=== PATIENT | male | born 1950 | race Caucasian/White ===

== ENCOUNTER 2023-06-21 14:59 | Outpatient (RCR) | payer MEDICARE, BC, SELFPAY | END 2023-06-21 23:59 | disposition home or self-care (01) | LOC: RST 14:59 | PROVIDERS: ATTENDING PHYSICIAN Psychiatry & Neurology Neurology; FAMILY PHYSICIAN Family Medicine | DX: G20.A1 Parkinson's disease without dyskinesia, without mention of fluctuations (principal); R49.8 Other voice and resonance disorders; R47.1 Dysarthria and anarthria | CPT/HCPCS: 92507 ==

== ENCOUNTER 2023-06-29 16:03 | Outpatient (RCR) | payer MEDICARE, BC, SELFPAY | END 2023-06-29 23:59 | disposition home or self-care (01) | LOC: RPT 16:03 | PROVIDERS: ATTENDING PHYSICIAN Specialist; FAMILY PHYSICIAN Family Medicine | DX: R35.0 Frequency of micturition (principal); N39.41 Urge incontinence; R35.1 Nocturia; M62.89 Other specified disorders of muscle | CPT/HCPCS: 97162; 97530 ==

== ENCOUNTER 2023-08-09 13:27 | Outpatient (RCR) | payer MEDICARE, BC, SELFPAY | END 2023-08-09 13:47 | disposition home or self-care (01) | LOC: RST 13:27 | PROVIDERS: FAMILY PHYSICIAN Family Medicine | DX: G20.A1 Parkinson's disease without dyskinesia, without mention of fluctuations (principal); R49.8 Other voice and resonance disorders; R47.1 Dysarthria and anarthria | CPT/HCPCS: 92507 ==

== ENCOUNTER 2023-08-16 15:58 | Outpatient (RCR) | payer MEDICARE, BC, SELFPAY | END 2023-08-16 23:59 | disposition home or self-care (01) | LOC: RPT 15:58 | PROVIDERS: ATTENDING PHYSICIAN Specialist; FAMILY PHYSICIAN Family Medicine | DX: G20.A1 Parkinson's disease without dyskinesia, without mention of fluctuations (principal); R49.8 Other voice and resonance disorders; R47.1 Dysarthria and anarthria | CPT/HCPCS: 92507; 97110; 97112; 97530 ==

== ENCOUNTER 2023-08-18 09:30 | Outpatient (RCR) | payer SELFPAY | END 2023-08-18 23:59 | disposition home or self-care (01) | LOC: RST 09:30 | PROVIDERS: ATTENDING PHYSICIAN Family Medicine | DX: G20.A1 Parkinson's disease without dyskinesia, without mention of fluctuations (principal) ==

== ENCOUNTER 2023-09-13 14:01 | Outpatient (RCR) | payer MEDICARE, BC, SELFPAY | END 2023-09-13 23:59 | disposition home or self-care (01) | LOC: RST 14:01 | PROVIDERS: ATTENDING PHYSICIAN Family Medicine | DX: R35.0 Frequency of micturition (principal); N39.41 Urge incontinence; R35.1 Nocturia; M62.89 Other specified disorders of muscle; Z73.6 Limitation of activities due to disability | CPT/HCPCS: 97014; 97110; 97112; 97140; 97530 ==

== ENCOUNTER 2023-10-14 14:11 | Outpatient (RCR) | payer MEDICARE, BC, SELFPAY | END 2023-10-14 23:59 | disposition home or self-care (01) | LOC: RPT 14:11 | PROVIDERS: ATTENDING PHYSICIAN Specialist; FAMILY PHYSICIAN Family Medicine | DX: R35.0 Frequency of micturition (principal); N39.41 Urge incontinence; R35.1 Nocturia; M62.89 Other specified disorders of muscle; Z73.6 Limitation of activities due to disability | CPT/HCPCS: 97014; 97112; 97530 ==

== ENCOUNTER 2023-10-28 14:25 | Outpatient (RCR) | payer MEDICARE, BC, SELFPAY | END 2023-10-28 23:59 | disposition home or self-care (01) | LOC: RPT 14:25 | PROVIDERS: ATTENDING PHYSICIAN Specialist; FAMILY PHYSICIAN Family Medicine | DX: R35.0 Frequency of micturition (principal); N39.41 Urge incontinence; R35.1 Nocturia; M62.89 Other specified disorders of muscle; Z73.6 Limitation of activities due to disability | CPT/HCPCS: 97112; 97140 ==

== ENCOUNTER 2023-11-26 08:47 | Outpatient (RCR) | payer MEDICARE, BC, SELFPAY | END 2023-11-26 10:02 | disposition home or self-care (01) | LOC: RPT 08:47 | PROVIDERS: ATTENDING PHYSICIAN Specialist; FAMILY PHYSICIAN Family Medicine | DX: R35.0 Frequency of micturition (principal); N39.41 Urge incontinence; R35.1 Nocturia; M62.89 Other specified disorders of muscle; Z73.6 Limitation of activities due to disability | CPT/HCPCS: 97110; 97530 ==

== ENCOUNTER 2023-12-22 12:29 | Outpatient (RCR) | payer SELFPAY | END 2023-12-22 23:59 | disposition home or self-care (01) | LOC: RST 12:29 | PROVIDERS: ATTENDING PHYSICIAN Otolaryngology | DX: G20.A1 Parkinson's disease without dyskinesia, without mention of fluctuations (principal); R47.1 Dysarthria and anarthria; R49.8 Other voice and resonance disorders ==

== ENCOUNTER 2024-03-26 15:23 | Emergency (ER) | payer BC, MEDICARE, SELFPAY ==
[2024-03-26 15:26] VITALS: BP 110/60
[2024-03-26 16:31] VITALS: BP 149/76; BMI 20.7
--- NOTE | 2024-03-26 16:49 | ED.GENMED ---
History of Present Illness
General
Chief Complaint: Head Injury
Time Seen by Provider: 03/26/24 16:00
History of Present Illness
History of Present Illness:
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 Patient states that he was walking when he tripped on sidewalk and fell on his left side. Patient states that he struck his left forehead, left
elbow, and bilateral knees. Patient denies loss of consciousness. Tetanus up-to-date. Patient states he is having pain and swelling to his left elbow, did not know if he should take Factor VIII replacement so he discussed with his doctor
recommended come to the emergency department for further evaluation. Patient denies any headache, numbness, weakness or tingling. Patient is not on blood thinners.
Phy Exam
Physical Exam
Physical Exam:
General: Alert, no acute distress
Head: NCAT
Eyes: clear conjunctiva, PERRLA
Neck: supple. No midline tenderness to palpation
Cardiac: regular rate and rhythm, no murmur
Lungs: clear to auscultation bilaterally. No wheezes, rales, or rhonchi. Speaking full unlabored sentences. No respiratory distress.
Abdomen: soft, nondistended nontender. No rebound or guarding.
MSK: no lower extremity edema bilaterally. No deformity. No swelling, ecchymosis, or effusion to left shoulder, left elbow, or bilateral knees. No tenderness to palpation to left shoulder, left knee, or bilateral knees. FROM left shoulder, left
elbow, and bilateral knees. No midline cervical/thoracic/lumbar tenderness to palpation
Skin: warm, dry. Superficial abrasion to left forehead, left elbow, bilateral knees. No active bleeding
Neuro: Alert and oriented x3. no focal deficits
Course
Orders/Labs/Results
Orders:
Orders
03/26/24 16:47
CT Cervical Spine W/o Iv Contr Urgent
Comment:
Reason For Exam: fall
CT Head W/o Iv Contrast Urgent
Comment:
Reason For Exam: fall head trauma, hx hemophilia
Vital Signs
Initial and Last Documented VS:
Initial Vital Signs
Temp Pulse Resp BP Pulse Ox
97.4 F 65 16 110/60 99
03/26/24 15:26 03/26/24 15:26 03/26/24 15:26 03/26/24 15:26 03/26/24 15:26
Last Documented Vital Signs
Temp Pulse Resp BP Pulse Ox
97.4 F 67 30 149/76 100
03/26/24 15:26 03/26/24 16:31 03/26/24 16:31 03/26/24 16:31 03/26/24 16:31
MDM/Problems Addressed
Differential Diagnosis Includes:
Intracranial hemorrhage. Low suspicion for hemarthrosis given no swelling on exam, nontender, FROM.
MDM/Problems Addressed:
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 Patient is superficial abrasions but no significant ecchymosis or hemarthrosis. Given history of hemophilia, will obtain CT head rule out intracranial
hemorrhage.
Results reviewed. CT head/cervical spine shows 1. No acute intracranial abnormality noted. 2. No acute fracture or subluxation of the cervical spine. Multilevel degenerative changes of the cervical spine. as read by radiology. Discussed results with
patient at bedside. Offered xray left elbow/shoulder/knees, patient declines. Low suspicion for fracture given nontender and pt has full range of motion. Stable for discharge with PCP follow up.
*Critical Care Note
Total Time (30-74mins, 75-104mins- exclusive of procedures): Not Applicable
ED Attending Note
-
Portions of this chart may have been created with voice recognition software.� Occasional wrong word or��sound alike� substitutions may have occurred due to the inherent limitations of voice recognition software.
Discharge Plan
Departure
Patient Disposition: Home (Routine Discharge)
Date of Disposition: 03/26/24
Time of Disposition: 18:49
Patient with high blood pressure during this ER visit?: Yes
Discharge Problem:
Head injury due to trauma
Instructions: Wound Care (DC), Head Injury in Adults (DC), BLOOD PRESSURE
Referrals:
Shoaib Juarez DO [Family Provider] -
Activity Restrictions/Additional Instructions:
Follow up with primary care doctor in 1-2 days
Return to the emergency department for joint swelling/decreased range of motion or new/worsening symptoms
Interventions
Interventions:
*Risk Screen - Suicide Last Done: 03/26/24 16:31
*General Assessment Last Done: 03/26/24 16:31
*Neglect/Abuse Screening Last Done: 03/26/24 16:31
*ED COVID-19 Vaccine History Last Done: 03/26/24 16:31
ED- Neurological Assessment Last Done: 03/26/24 16:31
ED-Skin Assessment Last Done: 03/26/24 16:31
Discharge Date and Time
Print Language: MONGOLIAN
[2024-03-26 19:01] VITALS: BP 160/84
== END 2024-03-26 19:04 | disposition home or self-care (01) ==
LOC: EMR 15:23
PROVIDERS: EMERGENCY PHYSICIAN Emergency Medicine; FAMILY PHYSICIAN Family Medicine
DX: S09.90XA Unspecified injury of head, initial encounter (principal); S00.81XA Abrasion of other part of head, initial encounter; S50.312A Abrasion of left elbow, initial encounter; S80.212A Abrasion, left knee, initial encounter; S80.211A Abrasion, right knee, initial encounter; W01.0XXA Fall on same level from slipping, tripping and stumbling without subsequent striking against object, initial encounter; R03.0 Elevated blood-pressure reading, without diagnosis of hypertension; D66 Hereditary factor VIII deficiency
CPT/HCPCS: 99284; 70450; 72125

== ENCOUNTER 2024-05-14 21:08 | Emergency (ER) | payer BC, MEDICARE, SELFPAY ==
[2024-05-14 21:16] VITALS: BP 146/76; BMI 25.0
[2024-05-14 21:18] VITALS: BP 146/76
[2024-05-14 22:00] VITALS: BP 130/77
[2024-05-14 22:34] LABS: % Basophils 0.9 % (0-2); % Immature Granulocytes 0.2 % (0-0.5); % Lymphocytes 17.9 % (20.5-51.1); % Monocytes 11.2 % (1.7-9.3); % Neutrophils 67.8 % (42.2-75.2); Absolute Basophils 0.1 10^3/uL (0-0.2); Absolute Eosinophils 0.1 10^3/uL (0-0.7); Absolute Lymphocytes 1.2 10^3/uL (1.2-3.4); Absolute Monocytes 0.7 10^3/uL (0.1-0.6); Absolute Neutrophils 4.4 10^3/uL (1.4-6.5); Hematocrit 37.5 % (39.0-52.0); Mean Corp Hgb Conc. 34.7 g/dL (33.0-37.0); Mean Corpuscular Hgb 32.2 pg (27.0-31.0); Mean Corpuscular Volume 92.8 fL (80.0-94.0); Mean Platelet Volume 10.3 fL (7.4-10.4); Nucleated Red Blood Cells % 0 % (-); Platelet Count 207 10^3/uL (130-400); Red Blood Cell Count 4.04 10^6/uL (4.70-6.10); Red Cell Dist. Width 11.9 % (11.5-14.5); White Blood Cell Count 6.5 10^3/uL (4.8-10.8)
--- NOTE | 2024-05-14 22:44 | ED.GENMED ---
History of Present Illness
General
Chief Complaint: Hallucinations
Source: patient
Time Seen by Provider: 05/14/24 22:18
History of Present Illness
History of Present Illness:
73-year-old male with past medical history of Parkinson's, anxiety/depression presenting to the emergency department for evaluation after he reportedly experienced some hallucinations earlier this evening stating that he felt that he was seeing his
girlfriend who is in his apartment but states he knew she was not there. Patient states that he had a similar instance about a month and a half ago when he was in [place] on vacation when he was seeing objects that he felt he knew was not present.
Patient was on the phone with his girlfriend and sister and was recommended to come to the ER for further evaluation. He reports no other symptoms and states he is otherwise feeling fine. He believes this may be a side effect of his carbidopa
levodopa but states there has not been any changes to his medications recently.
Past History
Past History
ED Past Medical History: Psychiatric and Other (Parkinson's)
ED Past Surgical History: Tonsilectomy
Social History
Tobacco: Non-smoker
Alcohol: None
Drug: None
Personal: Partner
Living: alone
Review of Systems
Review of Systems
All Other Systems: ROS reviewed and negative except as documented in HPI and ROS
Phy Exam
Physical Exam
Physical Exam:
GENERAL: Alert , in no apparent distress
EYE: conjunctiva clear
NECK: Supple
ENT: o/p clr, mmm.
CARDIAC: Regular rate and rhythm
LUNGS: Clear breath sounds bilaterally, no acute respiratory distress, no wheezes/rales/rhonchi
NEUROLOGICAL: Alert and oriented
SKIN: Warm and dry, skin intact.
MUSCULOSKELETAL: well perfused.
PSYCH: Normal and appropriate interaction.
Scores
Heart Failure Risk
Heart Failure Risk Score: Not Applicable
Heart Score for Chest Pain Patients
STEMI patient?: Not applicable
Withdrawal Assessment of Alcohol
Withdrawal Assessment Completed?: Not applicable
Course
Orders/Labs/Results
Orders:
Orders
05/14/24 21:34
Complete Blood Count/With Diff Urgent
Comprehensive Metabolic Panel Urgent
05/14/24 22:25
CT Head W/o Iv Contrast Urgent
Comment:
Reason For Exam: hallucinations
05/14/24 23:10
Urinalysis Reflex To Culture Urgent
Date Specimen was Collected: 05/14/24
Time Specimen was Collected: 23:07
Urine Microscopic Reflex Cult Urgent
Abnormal Lab Results
05/14/24 05/14/24
21:34 23:10
RBC 4.04 L 10^6/uL
(4.70-6.10)
Hct 37.5 L %
(39.0-52.0)
MCH 32.2 H pg
(27.0-31.0)
Absolute Monos (auto) 0.7 H 10^3/uL
(0.1-0.6)
Lymphocytes % 17.9 L %
(20.5-51.1)
Monocytes % 11.2 H %
(1.7-9.3)
BUN 29 H mg/dl
(9-20)
Urine Ketones Trace A
(Negative)
Leukocyte Esterase Rfl Trace A
(Negative)
Urine Bacteria (Reflex) Few A
(Negative)
05/14/24 21:34
05/14/24 21:34
Vital Signs
Initial and Last Documented VS:
Initial Vital Signs
Pulse Resp Pulse Ox
70 16 99
05/14/24 21:14 05/14/24 21:14 05/14/24 21:14
Last Documented Vital Signs
Temp Pulse Resp BP Pulse Ox
98.2 F 83 25 155/81 99
05/14/24 21:16 05/14/24 23:03 05/14/24 23:03 05/14/24 23:54 05/14/24 23:03
MDM/Problems Addressed
Differential Diagnosis Includes:
medication side effect, UTI, ICH/mass, progression of parkinsons
MDM/Problems Addressed:
73-year-old male presenting to the emergency department for evaluation of reported hallucinations earlier today, asymptomatic presently. Hemodynamically stable in no acute distress. Will check labs, urine and CT of the head. I suspect this may be
a component of patient's Parkinson's. If remains stable feel it would be reasonable to send patient home. Disposition pending
Chronic conditions affecting care: Neurological disorder
*Radiology
Radiology exam reviewed: radiology read reviewed
*Pulse Oximetry
Patient hypoxic: no
*Critical Care Note
Total Time (30-74mins, 75-104mins- exclusive of procedures): Not Applicable
Data Reviewed
Review of Other/Old Records Reveals: Labs and Records
Patient Management
Escalation/DeEscalation of care consider admission/obs:
Patient's workup is unremarkable for any acute emergent pathologies. He has remained hemodynamically stable in no acute distress. Urine without signs of infection and labs are reassuring. CT of the head with chronic changes. At this time I do
feel it is reasonable for patient to be discharged home. He will contact primary care provider for follow-up as an outpatient. Aware of return precautions to the ER.
ED Attending Note
-
Portions of this chart may have been created with voice recognition software.� Occasional wrong word or��sound alike� substitutions may have occurred due to the inherent limitations of voice recognition software.
Discharge Plan
Departure
Patient Disposition: Home (Routine Discharge)
Date of Disposition: 05/15/24
Time of Disposition: 00:33
Patient with high blood pressure during this ER visit?: Yes
Discharge Problem:
Hallucinations
Instructions: Side effects from medicines
Prescriptions:
No Action
tamsulosin [Flomax] 0.4 mg Capsule
0.4 mg PO DAILY
carbidopa-levodopa 25-100 mg Tablet
1 tab PO Q4H
Referrals:
Shoaib Juarez DO [Family Provider] -
Interventions
Interventions:
*Risk Screen - Suicide Last Done: 05/14/24 21:16
*General Assessment Last Done: 05/14/24 21:16
*Neglect/Abuse Screening Last Done: 05/14/24 21:16
*ED COVID-19 Vaccine History Last Done: 05/14/24 21:16
ED-Suicide Risk Assessment Last Done: 05/14/24 21:24
ED- Neurological Assessment Last Done: 05/14/24 21:24
ED-Psychological Assessment Last Done: 05/14/24 21:24
Discharge Date and Time
Print Language: DIVEHI
[2024-05-14 22:48] LABS: ALT (SGPT) 13 U/L (0-50); AST (SGOT) 29 U/L (17-59); Albumin 4.3 g/dl (3.5-5.0); Alkaline Phosphatase 63 U/L (38-126); Blood Urea Nitrogen 29 mg/dl (9-20); Calcium 9.5 mg/dl (8.4-10.2); Carbon Dioxide 26 mmol/L (22-30); Chloride 105 mmol/L (98-107); Estimated Creatinine Clearance 63 ml/min; Glucose 95 mg/dl (70-99); Potassium 4.2 mmol/L (3.5-5.1); Sodium 141 mmol/L (135-145); Total Bilirubin 0.8 mg/dl (0.2-1.3); Total Protein 6.8 g/dl (6.3-8.2); eGFR > 60.00
[2024-05-14 23:00] VITALS: BP 171/83
[2024-05-14 23:19] LABS: Urine Albumin Trace (Neg - Trace); Urine Bilirubin Negative (Negative); Urine Character Clear (Clear); Urine Color Yellow; Urine Glucose Negative (Negative); Urine Ketone Trace (Negative); Urine Leukocyte Trace (Negative); Urine Nitrite Negative (Negative); Urine Occult Blood Negative (Negative); Urine Urobilinogen Negative (Neg - 1+)
[2024-05-14 23:27] LABS: Urine Mucus Moderate
[2024-05-14 23:28] LABS: Urine Bacteria Few (Negative); Urine Red Blood Cell 0-2 /HPF (0-2)
[2024-05-14 23:54] VITALS: BP 155/81
--- NOTE | 2024-05-15 01:35 | EDRN ---
Pt. is discharged; however, pt. normally has his girlfriend at home to help him tend to ADL's, and his girlfriend is not at home tonight. Pt. believes his girlfriend should be home around 0800 AM. Transport to be arranged to take pt. home after
0800, to ensure pt. safety. Pt. agreeable w/ this plan.
[2024-05-15 01:50] VITALS: BP 162/84
[2024-05-15 06:02] VITALS: BP 149/71
[2024-05-15 08:00] VITALS: BP 155/80
[2024-05-15 10:00] VITALS: BP 144/62
[2024-05-15 11:53] VITALS: BP 150/63
== END 2024-05-15 11:55 | disposition home or self-care (01) ==
LOC: EMR 21:08
PROVIDERS: Physician Assistant Medical; EMERGENCY PHYSICIAN Emergency Medicine; FAMILY PHYSICIAN Family Medicine
DX: R44.3 Hallucinations, unspecified (principal); G20.A1 Parkinson's disease without dyskinesia, without mention of fluctuations; F41.8 Other specified anxiety disorders
CPT/HCPCS: 99284; 70450; 80053; 81003; 81015; 85025

== ENCOUNTER 2024-05-16 14:12 | Inpatient (IN) | payer MEDICARE, BC, SELFPAY ==
[2024-05-15 14:32] VITALS: BP 138/72
[2024-05-15 16:25] VITALS: BP 145/86
--- NOTE | 2024-05-15 17:17 | ED.GENMED ---
History of Present Illness
General
Chief Complaint: Failure to Thrive
Source: patient
Exam Limitations: none
Time Seen by Provider: 05/15/24 17:11
History of Present Illness
History of Present Illness:
See MDM
Past History
Past History
ED Past Medical History: Psychiatric and Other (Parkinson's)
ED Past Surgical History: Tonsilectomy
Social History
Tobacco: Non-smoker
Alcohol: None
Drug: None
Personal: Partner
Living: alone
Phy Exam
Physical Exam
Physical Exam:
See MDM
Course
Orders/Labs/Results
Orders:
Orders
05/15/24 14:36
Case Management Consult ONCE
Case Management Consult: Discharge Planning
Comment: patient just discharged unable to care for himself at home
Vital Signs
Initial and Last Documented VS:
Initial Vital Signs
Temp Pulse Resp BP Pulse Ox
98.2 F 71 16 138/72 100
05/15/24 14:32 05/15/24 14:32 05/15/24 14:32 05/15/24 14:32 05/15/24 14:32
Last Documented Vital Signs
Temp Pulse Resp BP Pulse Ox
98.2 F 78 18 145/86 99
05/15/24 14:32 05/15/24 16:25 05/15/24 16:25 05/15/24 16:25 05/15/24 16:25
MDM/Problems Addressed
Differential Diagnosis Includes:
HPI and MDM Narrative:
73-year-old male presenting for evaluation of generalized weakness and fatigue. He was seen in the emergency department less than 24 hours ago for evaluation of weakness and hallucinations. His workup included labs, urinalysis and CT head� All of
which were negative. Patient was discharged home but he is too weak to care for himself. He does live at home alone.
Case management did evaluate patient and we will admit for PT evaluation and likely rehab admission
Physical exam
General: Sitting comfortably in bed but appears weak and frail
HEENT: protecting airway
Neck: appears supple
CV: No evidence of cyanosis
Resp: No accessory muscle use
Abd: Non-distended
Extremities: No deformities
Neuro: alert
Psych: Flat affect
Skin: Intact
Problems Addressed including Acute and Chronic Conditions affecting care:
1. Generalized weakness
Acuity: acute
Prognosis: stable
Details: Likely in setting of Parkinson's progression. Given that he lives alone and it is currently unsafe. will admit for rehab placement
Differential Diagnosis (but not limited to): Parkinson's progression, dehydration, UTI
Testing considered: Repeating the blood work but was just done less than 24 hours ago
Drug therapy (if applicable): OTC meds, please see d/c instruction regarding Rx drugs
Amount and/or Complexity of Data Reviewed
Clinical info obtained from: Patient
External data reviewed: N/A
Labs I independently reviewed (but not limited to): Urinalysis negative
Radiology: N/A
Pulse Ox: not hypoxic
EKG independently reviewed: N/A
Blast Furnace Helper: N/A
Critical Care: N/A
Risk of Complication:
Social Determinants of health: Good social support
Discussed with other providers: Hospitalist
Escalation of Care includes Admit/Obs: Given his generalized weakness and inability care for self, will admit for rehab placement
Occasional wrong word or 'sound a like' substitutions may have occurred due to the inherent limitations of voice recognition software. Read the chart carefully and recognize, using context, where substitutions have occurred.
*Critical Care Note
Total Time (30-74mins, 75-104mins- exclusive of procedures): Not Applicable
ED Attending Note
-
Portions of this chart may have been created with voice recognition software.� Occasional wrong word or��sound alike� substitutions may have occurred due to the inherent limitations of voice recognition software.
Discharge Plan
Departure
Patient Disposition: Admit
Date of Disposition: 05/15/24
Time of Disposition: 17:17
Admit to: Med/Surg
Presentation/result/management discussed w/ accepting MD/DO: Hospitalist
Discharge Problem:
Weakness
Prescriptions:
No Action
tamsulosin [Flomax] 0.4 mg Capsule
0.4 mg PO DAILY
carbidopa-levodopa 25-100 mg Tablet
1 tab PO Q4H
Referrals:
Shoaib Juarez DO [Family Provider] -
Discharge Date and Time
Print Language: ISRAELI
--- NOTE | 2024-05-15 17:25 | CM ---
CM was consulted for discharge planning. CM met with patient and friend in room. Patient reports that he lives alone and has been otherwise independent. Patient uses a cane for ambulation and has recently been discharged from outpatient PT. Patient
is active with his PCP and neurologist.
Patient's friend reports that she feels patient has been increasingly declining in function at home and had a fall in March of this year.
CM discussed rehab options including SNF vs Acute Rehab. Patient would be agreeable if PT made the recommendation for rehab. CM will remain available.
PLAN: SNF vs. Acute Rehab
--- NOTE | 2024-05-15 17:43 | HPS.HSE ---
Addendum entered and electronically signed by Constantin Foreman MD 05/15/24 18:09:
I saw and examined the patient.
The REPAIRING CALIBRATOR or PA's note was reviewed and I agree with the note.
Comment:
73M HX advanced PKD , lives alone pw
Ambulatory Dysfunction secondary to Progressive Parkinson's Disease
-Consult PT/OT
-Continue Sinemet
-Patient follows with Dr. Jc at [facility]
DVT Px with SCD
Full code
Obs MS
Original Note:
Family Physician
-
Family Physician: Shoaib Juarez
Chief Complaint
-
Ambulatory Dysfunction
History of Present Illness
Patient is a 73 y/o male past medical history of Parkinson's Disease, Hemophilia A and BPH who presents with ambulatory dysfunction. Patient was seen here overnight last night due to worsening ambulatory dysfunction and hallucinations. Work-up in
the ED was negative and he was discharged home. He was taken home via ambulance and when he arrived his family sent him back to the hospital.
Medical History
Past Medical History
Past Medical History: Reports Other
Additional Past Medical History:
Parkinson's Disease
Hemophilia A
BPH
Past Surgical History: Reports None
Social History
Tobacco: Non-smoker
Alcohol: Occasional
Family History
Family History: Not pertinent
Allergies / Home Medications
Allergies reflects when Allergies were last updated in [employer].
Home Medications with original date entered in [employer]
Allergy/Medication List:
Allergies
Allergy/AdvReac Type Severity Reaction Status Date / Time
No Known Allergies Allergy Verified 05/14/24 21:13
Home Medications
carbidopa 25 mg-levodopa 100 mg tablet 2 tab PO TID@0600,1000,1400 05/14/24
tamsulosin 0.4 mg capsule (Flomax) 0.4 mg PO HS 05/14/24
acetaminophen 325 mg tablet (Tylenol) 650 mg PO Q6HPRN PRN mild pain 05/15/24
carbidopa 25 mg-levodopa 100 mg tablet 1 - 2 tab PO DAILY@2200 05/15/24
Review of Systems
-
A 12 point ROS was completed and negative except as noted: Yes
Constitutional: Denies Fever or Chills
Respiratory: Denies Cough or Trouble Breathing
Cardiac: Denies Chest Pain or Palpitations
Physical Exam
Vital Signs
Vital Signs
Temp Pulse Resp BP Pulse Ox
98.2 F 78 18 145/86 99
05/15/24 14:32 05/15/24 16:25 05/15/24 16:25 05/15/24 16:25 05/15/24 16:25
Physical Exam
General: Comfortable, Conversant and Other (Appears thin)
HEENT: Anicteric and Moist mucous membranes
Respiratory: Clear and Non Labored Respirations
Cardiac: S1/S2 and Regular Rhythm
GI: Soft and Non Tender
Rectal: Deferred by Provider
Musculoskeletal: No Clubbing, No Cyanosis and No Edema
Skin: Warm and Dry
Neuro: Awake, Alert, Oriented and Nonfocal/grossly intact
Psych: Calm
Data Reviewed
-
Lab Data: Labs Reviewed by me
Impression/Plan
-
Ambulatory Dysfunction secondary to Progressive Parkinson's Disease
-Consult PT/OT
-Continue Sinemet
-Patient follows with Dr. Jc at [facility]
BPH
-Continue Flomax
DVT proph: SCDs
Code Status: Full Code
[2024-05-15 18:00] VITALS: BP 124/73
[2024-05-15 19:33] VITALS: BP 130/79; BMI 24.1
[2024-05-15] MEDS: TYLENOL 650 MG PO (21:19)
[2024-05-15] MEDS: SINEMET 25-100 1 TABLET PO (21:38)
[2024-05-15] MEDS: FLOMAX 0.4 MG PO (21:38)
[2024-05-15 22:07] VITALS: BP 140/78
--- NOTE | 2024-05-15 22:11 | TRANSFER ---
pt arrived from ED via stretcher. pt was a pullover from stretcher to bed. AAOx3, VSS stable. oriented to room, call rosario within reach. resting in bed at present. plan of care ongoing.
[2024-05-16] MEDS: SINEMET 25-100 2 TABLET PO ×3 (05:35→13:58)
[2024-05-16] MEDS: TYLENOL 650 MG PO (06:16)
[2024-05-16 07:01] LABS: Blood Urea Nitrogen 21 mg/dl (9-20); Calcium 9.3 mg/dl (8.4-10.2); Carbon Dioxide 27 mmol/L (22-30); Chloride 106 mmol/L (98-107); Estimated Creatinine Clearance 57 ml/min; Glucose 102 mg/dl (70-99); Potassium 3.9 mmol/L (3.5-5.1); Sodium 143 mmol/L (135-145); eGFR > 60.00
[2024-05-16 07:40] VITALS: BP 145/66
[2024-05-16 11:19] VITALS: BP 78/40; BP 94/55; BP 96/58; PULSE 74; O2SAT 97
[2024-05-16 11:25] VITALS: BP 70/40; BP 94/55; BP 96/58; PULSE 72; PULSE 83
[2024-05-16 13:14] LABS: % Basophils 0.4 % (0-2); % Immature Granulocytes 0.3 % (0-0.5); % Lymphocytes 7.4 % (20.5-51.1); % Neutrophils 79.9 % (42.2-75.2); Absolute Basophils 0.1 10^3/uL (0-0.2); Absolute Eosinophils 0.1 10^3/uL (0-0.7); Absolute Lymphocytes 0.9 10^3/uL (1.2-3.4); Absolute Monocytes 1.4 10^3/uL (0.1-0.6); Absolute Neutrophils 10.1 10^3/uL (1.4-6.5); Hematocrit 42.5 % (39.0-52.0); Hemoglobin 14.7 g/dL (13.0-18.0); Mean Corp Hgb Conc. 34.6 g/dL (33.0-37.0); Mean Corpuscular Hgb 33.4 pg (27.0-31.0); Mean Corpuscular Volume 96.6 fL (80.0-94.0); Mean Platelet Volume 10.4 fL (7.4-10.4); Nucleated Red Blood Cells % 0 % (-); Platelet Count 224 10^3/uL (130-400); Red Cell Dist. Width 11.6 % (11.5-14.5); White Blood Cell Count 12.6 10^3/uL (4.8-10.8)
[2024-05-16 13:56] LABS: Blood Urea Nitrogen 28 mg/dl (9-20); Calcium 9.4 mg/dl (8.4-10.2); Carbon Dioxide 28 mmol/L (22-30); Chloride 102 mmol/L (98-107); Estimated Creatinine Clearance 44 ml/min; Glucose 120 mg/dl (70-99); Potassium 4.1 mmol/L (3.5-5.1); Sodium 144 mmol/L (135-145); eGFR 58.73
--- NOTE | 2024-05-16 14:03 | W.PN.HOSP.TC ---
Today's Communication/Plan
-
See plan
Assessment / Plan
Assessment / Plan
Impression:
Parkinson's disease
Acute on chronic ambulatory dysfunction in patient with Parkinson's disease.
Reported hallucinations prior to admission.
Orthostasis
Acute kidney injury
Acute urinary retention
Leukocytosis with left shift
BPH on Flomax DIRECTOR CLINICAL APPLICATIONS.
Plan:
Presentation with severe ambulatory dysfunction and reported hallucinations.
No focal findings on exam but
CT scan of the head with no acute abnormalities.
Suspect progressive Parkinson disease with ambulatory dysfunction which is multifactorial due to orthostasis and neurogenic also with mild dehydration.
Continue Sinemet.
Gentle hydration.
Consider introduction of midodrine
Physical therapy/physiatry assessment
Acute urine retention
Continue bladder scan
Continue Flomax
If persistent retention may require Barakat catheter
Leukocytosis
No respiratory complaints
Chest x-ray with no acute abnormalities
Urinalysis in ED negative.
Acute retention.
Recheck urinalysis and reflex to culture
Monitor for fever.
Given multiple issues not limited to severe orthostasis, acute ambulatory dysfunction, mild HUEY, ongoing workup as above, would be appropriate for inpatient level of care.
Anticipated Discharge: 24 - 48 hours
Subjective/Interval History
-
Date of Service: May 16, 2024
Objective Data
-
Labs:
Laboratory Results
05/16/24 05/16/24
06:22 12:29
WBC 12.6 H
Hgb 14.7
Hct 42.5
Plt Count 224
Sodium 143 144
Potassium 3.9 4.1
Chloride 106 102
Carbon Dioxide 27 28
BUN 21 H 28 H
Creatinine 1.0 1.3
Glucose 102 H 120 H
Calcium 9.3 9.4
Vital Signs:
Vital Signs
Temp Pulse Resp BP Pulse Ox
98.4 F 63 22 145/66 97
05/16/24 07:40 05/16/24 07:40 05/16/24 07:40 05/16/24 07:40 05/16/24 07:40
I&O
05/15/24 05/16/24 05/17/24
06:59 06:59 06:59
Intake Total 240 / 240
Output Total 1150 / 1150
Balance 240 / 240 -1150 / -1150
Physical Exam
-
General: Well Developed and No Apparent Distress
HEENT: Normocephalic, Atraumatic and Moist Mucous Membranes
Respiratory: Clear to Auscultation
Cardiac: Regular Rhythm and S1/S2; Negative Murmur, Rub or Gallop
GI: Soft, Nontender, Nondistended and Normal Bowel Sounds; Negative Organomegaly
Rectal: Deferred by Provider
Musculoskeletal: No Clubbing, No Cyanosis and No Edema
Skin: Negative Rash
Neuro: Awake, Alert, Oriented, AO x 3, Tremors and Nonfocal/Grossly Intact
[2024-05-16] MEDS: NSS 1000 IV ×2 (14:41→22:56)
[2024-05-16 15:55] VITALS: BP 114/57
--- NOTE | 2024-05-16 17:53 | PTCARENOTE ---
Patient with no urine output this shift. Straight cath this am for 1050ml. Recheck bladder scan of 301ml this evening due to no void. Plan of care ongoing.
[2024-05-16] MEDS: FLOMAX 0.4 MG PO (20:29)
[2024-05-16] MEDS: SINEMET 25-100 1 TABLET PO (20:29)
[2024-05-16 21:14] LABS: Urine Albumin 1+ (Neg - Trace); Urine Bilirubin Negative (Negative); Urine Character Clear (Clear); Urine Color Yellow; Urine Glucose Negative (Negative); Urine Ketone Trace (Negative); Urine Leukocyte Trace (Negative); Urine Nitrite Negative (Negative); Urine Occult Blood 3+ (Negative); Urine Urobilinogen Negative (Neg - 1+)
[2024-05-16 21:32] LABS: Urine Squamous Cell 0-2 /LPF (Few)
[2024-05-16 21:33] LABS: Urine Red Blood Cell 50-60 /HPF (0-2)
[2024-05-16 21:34] LABS: Urine Bacteria Moderate (Negative); Urine Mucus Few
[2024-05-16 23:00] VITALS: BP 126/60
[2024-05-17] MEDS: SINEMET 25-100 2 TABLET PO ×3 (05:51→15:06)
[2024-05-17] MEDS: NSS 1000 IV ×2 (06:01→15:05)
[2024-05-17 08:00] VITALS: BP 122/58
--- NOTE | 2024-05-17 08:40 | CON.MD ---
Documented by User: Lena Garcias PA-C 05/17/24 11:28
Consultation - Medical
-
Referring Provider:�Jim Weeks
Chief Complaint:�Parkinson, ambulatory dysfunction
�
History of Present Illness:�73 year old male with PMH of (Parkinson's disease, BPH, Hemophilia A) who is independent for all ADLs, lives alone, travels, and line dances presented to the ED with ambulatory dysfunction, hallucinations , failure to
thrive with decline of function over the past 1-2 months. He describes the hallucinations as shadows, faces, people. He is unable to void on his own and requires straight cath. Patient also with orthostatic blood pressure. Wbc elevated with
U/A-negative and culture pending.
Patient reports to have been in [place] about 1 month ago x 1 week on vacation. Due to the shift in time difference, he was off schedule with taking his medications. He started to have hallucinations. Once back in the [facility], the hallucination
temporarily went away with resuming his medications on regular timing. He reported return of worsening symptoms with walking, weakness, hallucination and decline in function again. He has been under stress and is not sure if that played a role in
all of this. He sees an urologist OP and has been on Flomax for 3-4 years still with some urinary leakage and retention. He denies having prior issues with low blood pressure. 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
strenuous activities. He had his right ankle fused due to bleed in the joints and had nerve denervation in his right knee. He was doing outpatient therapy for balance, pelvic floor strengthening and voice therapy, but other issues got in the way
and had stopped going.
Past Medical History:�Parkinson's, BPH, Hemophilia A,
Procedure History:�
Family History:�
�
Social History:�
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
Functional Level Currently:�Toileting dependent, bed [id number] assist x 2. Ambulates 3 feet with assist of 2 people, RW and gait belt.
�
Tobacco:�Denies�
Alcohol:�Denies�
Drug use:�Denies�
�
Lives with:�Alone
24-hour assistance available:�no
Number of floors:�2
# steps to enter:�2
# steps to second floor: FF
Potential First floor set up:�no
Driving:�yes
Occupation:�retired
�
�
Allergies:�
Allergy/AdvReac Type Severity Reaction Status Date / Time
No Known Allergies Allergy Verified 05/14/24 21:13
�
Review of Systems:�
Constitutional: (x) Normal _
Eye: (x) Normal _
Ear/Nose/Throat: (x) Normal _
Respiratory: (x) Normal _
Cardiovascular: (x) Normal _
Gastrointestinal: (x) Normal _
Genitourinary: (x) urinary retention, BPH
Musculoskeletal: (x) weakness, ambulatory dysfunction
Integumentary: (x) Normal _
Neurologic: (x) parkinson's
Psychiatric: (x) Normal _
Endocrine: (x) Normal _
Hematologic/Lymphatic: (x) hemophilia A
Allergic/Immunologic: (x) Normal _
�
Medications:�
Active Current Visit Medication List
Category Date Time Status
0.9% Sodium Chloride 1000 ml [Nss] 1,000 ml Med 05/16/24 14:15 Active
IV 125 mls/hr
Acetaminophen [Tylenol] Med 05/15/24 19:20 Active
650 mg PO Q6HPRN PRN
Carbidopa/Levodopa [Sinemet 25-100] Med 05/15/24 22:00 Active
1 tablet PO DAILY@2200
Carbidopa/Levodopa [Sinemet 25-100] Med 05/16/24 06:00 Active
2 tablet PO TID@0600,1000,1400
Tamsulosin [Flomax] Med 05/15/24 22:00 Active
0.4 mg PO HS
�
Vitals:�
�
Physical Exam:�
General Appearance/Observation: Well-developed, thin individual in no apparent distress.�
Pain/Comfort Assessment: Denies�
Mood/Affect: Appropriate, flat affect�
�
Integumentary/Operative Site:�
�� Pressure Ulcer Evaluation: absent over heels.�
��
�� Other Type of Wound: absent�
��
�
Eyes: Conjunctiva/Lids: normal���� Pupils: pupils equal round and reactive to light and Accommodation�
Ears/Nose/Throat: oral mucosa moist,� throat clear.������������ Lips/Teeth/Gums: normal�
Neck: No muscle spasm or tenderness�
Cardiovascular: Heart: regular, no murmur�
Pulses: dorsalis pedis 2+ bilaterally�
Respiratory: Respiratory Effort/Chest Expansion: normal������� Auscultation: Clear to auscultation bilaterally�
Gastrointestinal: abdomen not tender, no distension, normal abdominal bowel sounds
Genitourinary: Jett�
Extremities:�Edema: None�Cyanosis: None�Trophic�changes: None
�
Neurology Exam:
Orientation: Alert, Oriented to self, Time, Place�
Memory: Intact for immediate medical concerns�
Comprehension: Intact
Two step command: Intact
Naming: Intact
Cranial Nerves:
�� CNII:�Pupillary light reflex: Intact����Visual Field: NT
�� CN III, IV, : Extraocular muscles: Intact�
�� CN V:�Facial Sensation�at�Forehead: Intact,�Maxilla: Intact,�Mandible: Intact
�� CN VII:�Facial movement: Symmetric
�� CN VIII:�Hearing: Normal
�� CN IX/X:�Speech & swallow: low volume�Position of Uvula: Midline
�� CN XI:�Shoulder shrug: Symmetric
�� CN XII:�Tongue protrusion: Midline
Sensory:
�� Light touch: Intact in bilateral upper extremities, diminished sensation in lower extremities
��
�
Reflexes:
�� Biceps: 1+ bilaterally
�� Brachioradialis: 1+ bilaterally
�� Triceps: 1+ bilaterally
�� Patellar: absent right , 2/4 left
�� Achilles: absent bilaterally
�� Babinski: Down going bilaterally
�� Clonus: None
�� Norman: Negative bilaterally�
Cerebellar: Dysmetria/Ataxia: None�
Musculoskeletal:
Motor: (Manual muscle scale 0-5)�
Muscle SA EF WE EE FF FA HF KE DF EHL PF
Right� 5 5 5 5 5 5 3+ 3 3- 3
Left 5 5 5 5 5 5 3+ 3 3+ 3
�
Tone: some rigidity in the ankles
Range of Motion: Passively within normal limits. Limited rom of right ankle due to fusion, diminished rom of right knee with extension
�
Lab Results:
Labs
WBC 12.6 10^3/uL (4.8-10.8) H 05/16/24 12:
RBC 4.40 10^6/uL (4.70-6.10) L 05/16/24 12:
Hgb 14.7 g/dL (13.0-18.0) 05/16/24 12:
Hct 42.5 % (39.0-52.0) 05/16/24 12:
MCV 96.6 fL (80.0-94.0) H 05/16/24 12:29
MCH 33.4 pg (27.0-31.0) H 05/16/24 12:
MCHC 34.6 g/dL (33.0-37.0) 05/16/24 12:
RDW 11.6 % (11.5-14.5) 05/16/24 12:
Plt Count 224 10^3/uL (130-400) 05/16/24 12:
MPV 10.4 fL (7.4-10.4) 05/16/24 12:29
Abs Immat Gran (auto) 0.0 10^3/uL (0-0.05) 05/16/24 12:
Absolute Neuts (auto) 10.1 10^3/uL (1.4-6.5) H 05/16/24 12:
Absolute Lymphs (auto) 0.9 10^3/uL (1.2-3.4) L 05/16/24 12:
Absolute Monos (auto) 1.4 10^3/uL (0.1-0.6) H 05/16/24 12:
Absolute Eos (auto) 0.1 10^3/uL (0-0.7) 05/16/24 12:
Absolute Basos (auto) 0.1 10^3/uL (0-0.2) 05/16/24 12:
Immature Gran % 0.3 % (0-0.5) 05/16/24 12:
Neutrophils % 79.9 % (42.2-75.2) H 05/16/24 12:
Lymphocytes % 7.4 % (20.5-51.1) L 05/16/24:
Monocytes % 11.0 % (1.7-9.3) H 05/16/24 12:
Eosinophils % 1.0 % (0-6) 05/16/24 12:
Basophils % 0.4 % (0-2) 05/16/24 12:
Nucleated RBC % 0 % (-) 05/16/24 12:
Sodium 144 mmol/L (135-145) 05/16/24 12:
Potassium 4.1 mmol/L (3.5-5.1) 05/16/24 12:
Chloride 102 mmol/L (98-107) 05/16/24 12:
Carbon Dioxide 28 mmol/L (22-30) 05/16/24 12:
BUN 28 mg/dl (9-20) H 05/16/24 12:
Creatinine 1.3 mg/dL (0.7-1.3) 05/16/24 12:
Estimated Creat Clear 44 ml/min 05/16/24 12:
eGFR 58.73 05/16/24 12:
Glucose 120 mg/dl (70-99) H 05/16/24 12:29
Calcium 9.4 mg/dl (8.4-10.2) 05/16/24 12:29
Urine Color Yellow 05/16/24 21:07
Urine Clarity Clear (Clear) 05/16/24 21:07
Urine pH 5.0 (5.0-9.0) 05/16/24 21:07
Ur Specific Talmage 1.020 (<1.030) 05/16/24 21:07
Urine Ketones Trace (Negative) A 05/16/24 21:07
Ur Occult Blood Reflex 3+ (Negative) A 05/16/24 21:07
Urine Nitrite (Reflex) Negative (Negative) 05/16/24 21:07
Urine Bilirubin Negative (Negative) 05/16/24 21:07
Urine Urobilinogen Negative (Neg - 1+) 05/16/24 21:07
Leukocyte Esterase Rfl Trace (Negative) A 05/16/24 21:07
Urine RBC 50-60 /HPF (0-2) A 05/16/24 21:07
Urine WBC (Reflex) 6-10 /HPF (0-5) 05/16/24 21:07
Ur Squamous Epith Cells 0-2 /LPF (Few) 05/16/24 21:07
Urine Bacteria (Reflex) Moderate (Negative) A 05/16/24 21:07
Urine Mucus Few 05/16/24 21:07
Urine Glucose Negative (Negative) 05/16/24 21:07
Urine Albumin (Reflex) 1+ (Neg - Trace) A 05/16/24 21:07
�
Diagnostic Results:�as per HPI�
CT Head-05/14/24: No CT evidence for acute intracranial disease.
2. Mild chronic diffuse cerebral and cerebellar volume loss.
U/A: occult blood- 3+, Nitrite-negative, bacteria- moderate
Urine culture- Pending
05/16/24 WBC: 12
�
Assessment: 73 year old male with PMH of (Parkinson's disease, BPH, Hemophilia A) with worsening ambulatory dysfunction, hallucinations and decline in function over past 1-2 months.
�
Plan�
PT/OT to increase independence with ADLs, improve balance, coordination, endurance, strength, mobility, community reintegration, decreased burden of care on others and family education.�
�
�Ambulatory Dysfunction: secondary to Progressive Parkinson's Disease, PT/OT
Parkinson's: Continue Sinemet. Patient follows with Dr. Jc at [facility]. May need medication adjustment. Consider neuro input.
Orthostasis: check orthostatic vital signs. Put on Teds stocking. May add Midodrine 5mg @ 0700, 1200, and titrate as needed. Must be given 30 minutes before getting out of bed and remain seated in an upright position once taken to prevent supine
hypertension.
HUEY: received IV fluids. Monitor bun
Leukocytosis:wbc 12.6 No fever, urine analysis-negative, urine culture pending.
Psych: Psychology consult.� Monitor mood, adjust medications as needed.�
Skin: monitor for pressure sores/rashes/lesions.�
Pain: acetaminophen as needed.�
Bowel: add Colace and Senna, PRN bisacodyl.�Patient reports last bowel movement prior to admission
Bladder: Time void, PVRs, PRN straight cath.�Cont Flomax 0.4mg HS.May need med titration if already on home dose and if BP allows. Patient now with jett
GI Prophylaxis: Not on medicine. Consider Pantoprazole�
DVT Prophylaxis: Mechanical.
Pulmonary: Incentive spirometry�
Safety: Continue to reinforce assistance with all transfers.�
Code Status:� Full code
Dispo�(date/plan/equipment needs): Home with family care.� Social history reviewed.�
�
Functional and Medical Goals:�Modified Independent with ADL�s, ambulation, transfers�
�
Discharge Destination:� �Woud benefit from Acute inpatient rehabilitation for PT/OT to increase independence with ADLs, improve balance, coordination, endurance, strength, mobility
�
Summary of recommendations: Patient with suspected progressive Parkinson disease with multifactorial ambulatory dysfunction, orthostasis and dehydration previously independent and now dependent for toileting, min assist for bed mobility and mod
assist for transfers, would benefit from acute inpatient rehabilitation once medically cleared and all pending tests and/or consults are completed.
Ambulatory Dysfunction: secondary to Progressive Parkinson's Disease, PT/OT
Parkinson's: Continue Sinemet. Patient follows with Dr. Jc at [facility]. May need medication adjustment. Consider neuro input.
Orthostasis: check orthostatic vital signs. Put on Teds stocking. May add Midodrine 5mg @ 0700, 1200, and titrate as needed. Must be given 30 minutes before getting out of bed and remain seated in an upright position once taken to prevent supine
hypertension.
Bowel/constipation: Add Colace and Senna, PRN bisacodyl.�Patient reports last bowel movement prior to admission
Bladder: Time void, PVRs, PRN straight cath.�Cont Flomax 0.4mg HS.May need med titration if already on home dose and if BP allows. Jett catheter now in place. Urine culture - pending.
Thank you for allowing me to care for your patient. Please contact me with any questions or concerns.

Documented by User: Wojciech Levin MD 05/17/24 23:22
Consultation - Medical
-
Referring Provider:�Jim Weeks
Chief Complaint:�Parkinson, ambulatory dysfunction
�
History of Present Illness:�73 year old male with PMH of (Parkinson's disease, BPH, Hemophilia A) who is independent for all ADLs, lives alone, travels, and line dances presented to the ED with ambulatory dysfunction, hallucinations , failure to
thrive with decline of function over the past 1-2 months. He describes the hallucinations as shadows, faces, people. He is unable to void on his own and requires straight cath. Patient also with orthostatic blood pressure. Wbc elevated with
U/A-negative and culture pending.
Patient reports to have been in [place] about 1 month ago x 1 week on vacation. Due to the shift in time difference, he was off schedule with taking his medications. He started to have hallucinations. Once back in the [facility], the hallucination
temporarily went away with resuming his medications on regular timing. He reported return of worsening symptoms with walking, weakness, hallucination and decline in function again. He has been under stress and is not sure if that played a role in
all of this. He sees an urologist OP and has been on Flomax for 3-4 years still with some urinary leakage and retention. He denies having prior issues with low blood pressure. 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
strenuous activities. He had his right ankle fused due to bleed in the joints and had nerve denervation in his right knee. He was doing outpatient therapy for balance, pelvic floor strengthening and voice therapy, but other issues got in the way
and had stopped going.
Past Medical History:�Parkinson's, BPH, Hemophilia A
Procedure History:�None
Family History:�Reviewed, none pertinent
�
Social History:�
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
Functional Level Currently:�Toileting dependent, bed [id number] assist x 2. Ambulates 3 feet with assist of 2 people, RW and gait belt.
�
Tobacco:�Denies�
Alcohol:�Denies�
Drug use:�Denies�
�
Lives with:�Alone
24-hour assistance available:�no
Number of floors:�2
# steps to enter:�2
# steps to second floor: FF
Potential First floor set up:�no
Driving:�yes
Occupation:�retired
�
�
Allergies:�
Allergy/AdvReac Type Severity Reaction Status Date / Time
No Known Allergies Allergy Verified 05/14/24 21:13
�
Review of Systems:�
Constitutional: (x) abNormal _fatigue
Eye: (x) Normal _
Ear/Nose/Throat: (x) Normal _
Respiratory: (x) Normal _
Cardiovascular: (x) Normal _
Gastrointestinal: (x) Normal _
Genitourinary: (x) urinary retention, BPH
Musculoskeletal: (x) weakness, ambulatory dysfunction
Integumentary: (x) Normal _
Neurologic: (x) parkinson's, hallucinations
Psychiatric: (x) Normal _
Endocrine: (x) Normal _
Hematologic/Lymphatic: (x) hemophilia A
Allergic/Immunologic: (x) Normal _
�
Medications:�
Active Current Visit Medication List
Category Date Time Status
0.9% Sodium Chloride 1000 ml [Nss] 1,000 ml Med 05/16/24 14:15 Active
IV 125 mls/hr
Acetaminophen [Tylenol] Med 05/15/24 19:20 Active
650 mg PO Q6HPRN PRN
Carbidopa/Levodopa [Sinemet 25-100] Med 05/15/24 22:00 Active
1 tablet PO DAILY@2200
Carbidopa/Levodopa [Sinemet 25-100] Med 05/16/24 06:00 Active
2 tablet PO TID@0600,1000,1400
Tamsulosin [Flomax] Med 05/15/24 22:00 Active
0.4 mg PO HS
�
Vitals:�
Temp Pulse Resp BP Pulse Ox
98.9 F 76 12 113/59 98
05/17/24 15:00 05/17/24 15:00 05/17/24 15:00 05/17/24 15:00 05/17/24 15:00
Height 5 ft 4 in
Actual Weight 63.73 kg
Body Mass Index (BMI) 24.1
�
Physical Exam:�
General Appearance/Observation: Well-developed, thin individual in no apparent distress.�
Pain/Comfort Assessment: Denies�
Mood/Affect: Appropriate, flat affect�
�
Integumentary/Operative Site:�
�� Pressure Ulcer Evaluation: absent over heels.�
�
Eyes: Conjunctiva/Lids: normal���� Pupils: pupils equal round and reactive to light and Accommodation�
Ears/Nose/Throat: oral mucosa moist,� throat clear.������������ Lips/Teeth/Gums: normal�
Neck: No muscle spasm or tenderness�
Cardiovascular: Heart: regular, no murmur�
Pulses: dorsalis pedis 2+ bilaterally�
Respiratory: Respiratory Effort/Chest Expansion: normal������� Auscultation: Clear to auscultation bilaterally�
Gastrointestinal: abdomen not tender, no distension, normal abdominal bowel sounds
Genitourinary: Jett�
Extremities:�Edema: None�Cyanosis: None�Trophic�changes: None
�
Neurology Exam:
Orientation: Alert, Oriented to self, Time, Place�
Memory: Intact for immediate medical concerns�
Comprehension: Intact
Two step command: Intact
Naming: Intact
Cranial Nerves:
�� CNII:�Pupillary light reflex: Intact����Visual Field: NT
�� CN III, IV, : Extraocular muscles: Intact�
�� CN V:�Facial Sensation�at�Forehead: Intact,�Maxilla: Intact,�Mandible: Intact
�� CN VII:�Facial movement: Symmetric
�� CN VIII:�Hearing: Normal
�� CN IX/X:�Speech & swallow: low volume�Position of Uvula: Midline
�� CN XI:�Shoulder shrug: Symmetric
�� CN XII:�Tongue protrusion: Midline
Sensory:
�� Light touch: Intact in bilateral upper extremities, diminished sensation in lower extremities
��
�
Reflexes:
�� Biceps: 1+ bilaterally
�� Brachioradialis: 2+ bilaterally
�� Triceps: 2+ bilaterally
�� Patellar: absent right , 2/4 left
�� Achilles: absent bilaterally
�� Babinski: Down going bilaterally
�� Clonus: None
�� Norman: Negative bilaterally�
Cerebellar: Dysmetria/Ataxia: None�
Musculoskeletal:
Motor: (Manual muscle scale 0-5)�
Muscle SA EF WE EE FF FA HF KE DF EHL PF
Right� 5 5 5 5 5 5 3+ 3 3- 3
Left 5 5 5 5 5 5 3+ 3 3+ 3
�
Tone: some rigidity in the ankles
Range of Motion: Passively within normal limits. Limited rom of right ankle due to fusion, diminished rom of right knee with extension
�
Lab Results:
Labs
WBC 12.6 10^3/uL (4.8-10.8) H 05/16/24 12:
RBC 4.40 10^6/uL (4.70-6.10) L 05/16/24:
Hgb 14.7 g/dL (13.0-18.0) 05/16/24 12:
Hct 42.5 % (39.0-52.0) 05/16/24:
MCV 96.6 fL (80.0-94.0) H 05/16/24:
MCH 33.4 pg (27.0-31.0) H 05/16/24 12:
MCHC 34.6 g/dL (33.0-37.0) 05/16/24:
RDW 11.6 % (11.5-14.5) 05/16/24 12:
Plt Count 224 10^3/uL (130-400) 05/16/24:
MPV 10.4 fL (7.4-10.4) 05/16/24 12:
Abs Immat Gran (auto) 0.0 10^3/uL (0-0.05) 05/16/24 12:
Absolute Neuts (auto) 10.1 10^3/uL (1.4-6.5) H 05/16/24:
Absolute Lymphs (auto) 0.9 10^3/uL (1.2-3.4) L 05/16/24 12:
Absolute Monos (auto) 1.4 10^3/uL (0.1-0.6) H 05/16/24 12:
Absolute Eos (auto) 0.1 10^3/uL (0-0.7) 05/16/24 12:
Absolute Basos (auto) 0.1 10^3/uL (0-0.2) 05/16/24 12:
Immature Gran % 0.3 % (0-0.5) 05/16/24 12:
Neutrophils % 79.9 % (42.2-75.2) H 05/16/24 12:
Lymphocytes % 7.4 % (20.5-51.1) L 05/16/24 12:
Monocytes % 11.0 % (1.7-9.3) H 05/16/24 12:
Eosinophils % 1.0 % (0-6) 05/16/24 12:
Basophils % 0.4 % (0-2) 05/16/24 12:
Nucleated RBC % 0 % (-) 05/16/24 12:
Sodium 144 mmol/L (135-145) 05/16/24 12:
Potassium 4.1 mmol/L (3.5-5.1) 05/16/24 12:
Chloride 102 mmol/L (98-107) 05/16/24 12:
Carbon Dioxide 28 mmol/L (22-30) 05/16/24 12:
BUN 28 mg/dl (9-20) H 05/16/24 12:
Creatinine 1.3 mg/dL (0.7-1.3) 05/16/24 12:
Estimated Creat Clear 44 ml/min 05/16/24 12:
eGFR 58.73 05/16/24 12:
Glucose 120 mg/dl (70-99) H 05/16/24 12:
Calcium 9.4 mg/dl (8.4-10.2) 05/16/24 12:
Urine Color Yellow 05/16/24 21:07
Urine Clarity Clear (Clear) 05/16/24 21:07
Urine pH 5.0 (5.0-9.0) 05/16/24 21:07
Ur Specific Talmage 1.020 (<1.030) 05/16/24 21:07
Urine Ketones Trace (Negative) A 05/16/24 21:07
Ur Occult Blood Reflex 3+ (Negative) A 05/16/24 21:07
Urine Nitrite (Reflex) Negative (Negative) 05/16/24 21:07
Urine Bilirubin Negative (Negative) 05/16/24 21:07
Urine Urobilinogen Negative (Neg - 1+) 05/16/24 21:07
Leukocyte Esterase Rfl Trace (Negative) A 05/16/24 21:07
Urine RBC 50-60 /HPF (0-2) A 05/16/24 21:07
Urine WBC (Reflex) 6-10 /HPF (0-5) 05/16/24 21:07
Ur Squamous Epith Cells 0-2 /LPF (Few) 05/16/24 21:07
Urine Bacteria (Reflex) Moderate (Negative) A 05/16/24 21:07
Urine Mucus Few 05/16/24 21:07
Urine Glucose Negative (Negative) 05/16/24 21:07
Urine Albumin (Reflex) 1+ (Neg - Trace) A 05/16/24 21:07
�
Diagnostic Results:�as per HPI�
CT Head-05/14/24: No CT evidence for acute intracranial disease.
2. Mild chronic diffuse cerebral and cerebellar volume loss.
U/A: occult blood- 3+, Nitrite-negative, bacteria- moderate
Urine culture- Pending
05/16/24 WBC: 12
�
Assessment:
73 year old male with PMH of (Parkinson's disease, BPH, Hemophilia A) with worsening ambulatory dysfunction, hallucinations and decline in function over past 1-2 months.
�
Plan�
PT/OT to increase independence with ADLs, improve balance, coordination, endurance, strength, mobility, community reintegration, decreased burden of care on others and family education.�
�
Ambulatory Dysfunction: secondary to Progressive Parkinson's Disease, PT/OT
Worsening Parkinson's: Continue Sinemet. Patient follows with Dr. Jc at [facility]. May need medication adjustment. Consider neuro input.
Orthostasis: check orthostatic vital signs. Put on Teds stocking. May add Midodrine 5mg @ 0700, 1200, and titrate as needed. Must be given 30 minutes before getting out of bed and remain seated in an upright position once taken to prevent supine
hypertension.
HUEY: received IV fluids. Monitor bun
Leukocytosis:wbc 12.6 No fever, urine analysis-negative, urine culture pending.
Psych: Psychology consult.� Monitor mood, adjust medications as needed.�
Skin: monitor for pressure sores/rashes/lesions.�
Pain: acetaminophen as needed.�
Bowel: add Colace and Senna, PRN bisacodyl.�Patient reports last bowel movement prior to admission
Bladder: Time void, PVRs, PRN straight cath.�Cont Flomax 0.4mg HS.May need med titration if already on home dose and if BP allows. Patient now with jett
GI Prophylaxis: Not on medicine. Consider Pantoprazole�
DVT Prophylaxis: Mechanical.
Pulmonary: Incentive spirometry�
Safety: Continue to reinforce assistance with all transfers.�
Code Status:� Full code
Dispo�(date/plan/equipment needs): Home with family care.� Social history reviewed.�
Functional and Medical Goals:�Modified Independent with ADL�s, ambulation, transfers�
Discharge Destination:� �Woud benefit from Acute inpatient rehabilitation for PT/OT to increase independence with ADLs, improve balance, coordination, endurance, strength, mobility
�
Summary of recommendations: Patient with suspected progressive Parkinson disease with multifactorial ambulatory dysfunction, orthostasis and dehydration previously independent and now dependent for toileting, min assist for bed mobility and mod
assist for transfers, would benefit from acute inpatient rehabilitation once medically cleared and all pending tests and/or consults are completed.
Ambulatory Dysfunction: secondary to Progressive Parkinson's Disease, PT/OT
Parkinson's: Continue Sinemet. Patient follows with Dr. Jc at [facility]. May need medication adjustment. Consider neuro input.
Orthostasis: check orthostatic vital signs. Put on Teds stocking. May add Midodrine 5mg @ 0700, 1200, and titrate as needed. Must be given 30 minutes before getting out of bed and remain seated in an upright position once taken to prevent supine
hypertension.
Bowel/constipation: Add Colace and Senna, PRN bisacodyl.�Patient reports last bowel movement prior to admission
Bladder: Time void, PVRs, PRN straight cath.�Cont Flomax 0.4mg HS. May need med titration if already on home dose and if BP allows. Jett catheter now in place. Urine culture - pending.
Thank you for allowing me to care for your patient. Please contact me with any questions or concerns.
Attending Statement:
I saw and examined the patient today. Reviewed care plan with patient, therapy, nursing, and physician lead recreation assistant. I agree with the above subjective and physical exam, and plan as documented by BRITNI Garcias with adjustments made as necessary.
[2024-05-17 11:26] LABS: % Basophils 0.4 % (0-2); % Eosinophils 3.4 % (0-6); % Immature Granulocytes 0.2 % (0-0.5); % Lymphocytes 7.9 % (20.5-51.1); % Neutrophils 79.1 % (42.2-75.2); Absolute Eosinophils 0.3 10^3/uL (0-0.7); Absolute Lymphocytes 0.8 10^3/uL (1.2-3.4); Absolute Monocytes 0.9 10^3/uL (0.1-0.6); Absolute Neutrophils 7.8 10^3/uL (1.4-6.5); Hematocrit 37.2 % (39.0-52.0); Hemoglobin 12.9 g/dL (13.0-18.0); Mean Corp Hgb Conc. 34.7 g/dL (33.0-37.0); Mean Corpuscular Hgb 33.1 pg (27.0-31.0); Mean Corpuscular Volume 95.4 fL (80.0-94.0); Mean Platelet Volume 10.3 fL (7.4-10.4); Nucleated Red Blood Cells % 0 % (-); Platelet Count 180 10^3/uL (130-400); Red Cell Dist. Width 11.7 % (11.5-14.5); White Blood Cell Count 9.8 10^3/uL (4.8-10.8)
[2024-05-17 12:03] LABS: Blood Urea Nitrogen 23 mg/dl (9-20); Calcium 8.7 mg/dl (8.4-10.2); Carbon Dioxide 24 mmol/L (22-30); Chloride 108 mmol/L (98-107); Estimated Creatinine Clearance 71 ml/min; Glucose 99 mg/dl (70-99); Potassium 3.9 mmol/L (3.5-5.1); Sodium 141 mmol/L (135-145); eGFR > 60.00
[2024-05-17 12:48] VITALS: BP 137/71; BP 154/70; PULSE 81; PULSE 84
[2024-05-17 15:00] VITALS: BP 113/59
--- NOTE | 2024-05-17 16:15 | W.PN.HOSP.TC ---
Today's Communication/Plan
-
Renal function improved.
Required placement of a Barakat catheter given recurrent retention.
Observe closely off antibiotics pending urine cultures.
Wean off IV fluids per
Reassess for orthostasis.
Consider midodrine.
Assessment / Plan
Assessment / Plan
Impression:
Parkinson's disease
Acute on chronic ambulatory dysfunction in patient with Parkinson's disease.
Reported hallucinations prior to admission.
Orthostasis
Acute kidney injury
Acute urinary retention
Leukocytosis with left shift
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
Plan:
Presentation with severe ambulatory dysfunction and reported hallucinations.
No focal findings on exam but
CT scan of the head with no acute abnormalities.
Suspect progressive Parkinson disease with ambulatory dysfunction which is multifactorial due to orthostasis and neurogenic also with mild dehydration.
Continue Sinemet.
Wean off IV fluids
Reassess for orthostasis
Consider introduction of midodrine
Physical therapy/physiatry assessment appreciated with plan for acute rehab
Acute urine retention
Required Barakat catheter placement on 05/17
Continue Flomax
Urology consultation pending
Urine cultures pending monitor closely off antibiotics
Leukocytosis
No respiratory complaints
Chest x-ray with no acute abnormalities
Urinalysis in ED negative.
Acute retention.
Recheck urinalysis and reflex to culture
Monitor for fever.
Given multiple issues not limited to severe orthostasis, acute ambulatory dysfunction, mild HUEY, ongoing workup as above, would be appropriate for inpatient level of care.
Anticipated Discharge: 24 - 48 hours
Subjective/Interval History
-
Date of Service: May 17, 2024
Objective Data
-
Labs:
Laboratory Results
05/17/24
11:07
WBC 9.8
Hgb 12.9 L
Hct 37.2 L
Plt Count 180
Sodium 141
Potassium 3.9
Chloride 108 H
Carbon Dioxide 24
BUN 23 H
Creatinine 0.8
Glucose 99
Calcium 8.7
Vital Signs:
Vital Signs
Temp Pulse Resp BP Pulse Ox
98.9 F 76 12 113/59 98
05/17/24 15:00 05/17/24 15:00 05/17/24 15:00 05/17/24 15:00 05/17/24 15:00
I&O
05/16/24 05/17/24 05/18/24
06:59 06:59 06:59
Intake Total 240 / 240 380 / 380
Output Total 2730 / 2730
Balance 240 / 240 -2350 / -2350
Physical Exam
-
General: Well Developed and No Apparent Distress
HEENT: Normocephalic, Atraumatic and Moist Mucous Membranes
Respiratory: Clear to Auscultation
Cardiac: Regular Rhythm and S1/S2; Negative Murmur, Rub or Gallop
GI: Soft, Nontender, Nondistended and Normal Bowel Sounds; Negative Organomegaly
Rectal: Deferred by Provider
Genito-urinary: Barakat
Musculoskeletal: No Clubbing, No Cyanosis and No Edema
Skin: Negative Rash
Neuro: Awake, Alert, Oriented, AO x 3, Tremors and Nonfocal/Grossly Intact
[2024-05-17 16:33] VITALS: BP 113/59; PULSE 76
--- NOTE | 2024-05-17 17:03 | CM ---
Had long conversation with pt and friend yesterday and today spoke with sister Areli from [place] [phone].
Explained to sister difference between acute rehab and SNF.
NOZZLE AND SLEEVE WORKER from [facility] rehab did evaluate pt and said he was appropriate.
Spoke with Nyla Meadows who said she can offer bed at [facility].
Pt voiced concerns of being able to tolerate 3 hrs of rehab with his hemophilia.
Explained PAcc data to sister Medicare.gov/long term compare.
She will talk with pt and get back with CM.
Sister has already spoke with [facility] to assist setting up assisted living after Rehab.(he will not be able to return to home with [place])
PLAN [facility] VS SNF
[2024-05-17] MEDS: SINEMET 25-100 1 TABLET PO (20:00)
[2024-05-17] MEDS: FLOMAX 0.4 MG PO (20:00)
[2024-05-17 23:04] VITALS: BP 133/71
[2024-05-18] MEDS: SINEMET 25-100 2 TABLET PO ×3 (06:07→14:32)
[2024-05-18 07:23] VITALS: BP 128/81
--- NOTE | 2024-05-18 08:52 | CON.MD ---
Consultation - Medical
-
see dictated note
pt weel known to me
advancing Parkinson's and partial urinary retention
maintained on flomax
now admitted- found to be in urinary retention and ? UTI
jett in place
plan
continue jett
continue flomax
f/u ucx
if discharged before wednesday- have rehab contact me to arrange outpatient voiding trial
[2024-05-18 11:00] VITALS: BP 132/58; BP 98/61; PULSE 68; PULSE 71
--- NOTE | 2024-05-18 15:30 | CM ---
Pt and his sister given option between acute rehab and SNF .
Pt decided on [facility].
Kapil Avila Mos requested updated OT evals Dept notified.
[facility] can accept tomorrow.
IMM reviewed with pt Signed on chart.
[facility]
report [phone]
fax [phone]
PLAN To [facility] rehab
[2024-05-18 15:39] VITALS: BP 104/51
--- NOTE | 2024-05-18 16:27 | W.PN.HOSP.TC ---
Today's Communication/Plan
-
Start midodrine for orthostasis
Continue Barakat catheter and Flomax
Physical therapy
Disposition to [facility] rehab on 05/19
Assessment / Plan
Assessment / Plan
Impression:
Parkinson's disease
Acute on chronic ambulatory dysfunction in patient with Parkinson's disease.
Reported hallucinations prior to admission.
Orthostasis
Acute kidney injury
Acute urinary retention
Leukocytosis with left shift
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
Hemophilia
Plan:
Presentation with severe ambulatory dysfunction and reported hallucinations.
No focal findings on exam but
CT scan of the head with no acute abnormalities.
Suspect progressive Parkinson disease with ambulatory dysfunction which is multifactorial due to orthostasis and neurogenic also with mild dehydration.
Continue Sinemet.
Wean off IV fluids
Reassess for orthostasis
Start midodrine 2.5 mg 3 times daily
Physical therapy/physiatry assessment appreciated with plan for acute rehab
Acute urine retention
Required Barakat catheter placement on 05/17
Continue Flomax
Urology consultation pending
Urine cultures pending monitor closely off antibiotics
Leukocytosis
No respiratory complaints
Chest x-ray with no acute abnormalities
Urinalysis in ED negative.
Acute retention.
Urine cultures negative to date
Given multiple issues not limited to severe orthostasis, acute ambulatory dysfunction, mild HUEY, ongoing workup as above, would be appropriate for inpatient level of care.
Anticipated Discharge: 24 - 48 hours
Subjective/Interval History
-
Date of Service: May 18, 2024
Objective Data
-
Vital Signs:
Vital Signs
Temp Pulse Resp BP Pulse Ox
98 F 73 20 104/51 97
05/18/24 15:39 05/18/24 15:39 05/18/24 15:39 05/18/24 15:39 05/18/24 15:39
I&O
05/17/24 05/18/24 05/19/24
06:59 06:59 06:59
Intake Total 380 / 380 660 / 660
Output Total 2730 / 2730 2250 / 2250
Balance -2350 / -2350 -1590 / -1590
Physical Exam
-
General: Well Developed and No Apparent Distress
HEENT: Normocephalic, Atraumatic and Moist Mucous Membranes
Respiratory: Clear to Auscultation
Cardiac: Regular Rhythm and S1/S2; Negative Murmur, Rub or Gallop
GI: Soft, Nontender, Nondistended and Normal Bowel Sounds; Negative Organomegaly
Rectal: Deferred by Provider
Genito-urinary: Barakat
Musculoskeletal: No Clubbing, No Cyanosis and No Edema
Skin: Negative Rash
Neuro: Awake, Alert, Oriented, AO x 3, Tremors and Nonfocal/Grossly Intact
[2024-05-18] MEDS: ProAmatine 2.5 MG PO (17:00)
[2024-05-18] MEDS: FLOMAX 0.4 MG PO (21:25)
[2024-05-18] MEDS: SINEMET 25-100 1 TABLET PO (21:25)
[2024-05-18 23:36] VITALS: BP 134/69
[2024-05-19] MEDS: SINEMET 25-100 2 TABLET PO ×3 (06:24→12:59)
[2024-05-19 07:40] VITALS: BP 128/66
[2024-05-19 07:42] VITALS: BP 112/64; BP 128/66; BP 88/59; PULSE 59; PULSE 71; PULSE 82
--- NOTE | 2024-05-19 08:48 | W.PN.URO.CBU ---
Today's Communication / Plan
-
to rehab with jett
Assessment / Plan
-
urinary retention
to rehab with jett
rehab should contact dr shivani murphy timing of jett removal
continue flomax
Diagnosis
-
Date of Service: May 19, 2024
-
Patient Diagnosis:
neurogenic bladder
Subjective
-
stable
urine clear
ucx negative
Objective
-
Vital Signs
Temp Pulse Resp BP Pulse Ox
98.2 F 57 18 134/69 96
05/19/24 07:42 05/18/24 23:36 05/19/24 07:42 05/18/24 23:36 05/19/24 07:42
Intake and Output
05/18/24 05/19/24 05/20/24
06:59 06:59 06:59
Intake Total 660 / 660 720 / 720
Output Total 2250 / 2250 2475 / 2475
Balance -1590 / -1590 -1755 / -1755
Intake:
Oral fluids 660 / 660 720 / 720
Output:
Urine, Jett 2250 / 2250 2475 / 2475
Laboratory Results
05/17/24 11:07
05/17/24 11:07
Physical Exam
-
General - no acute distress
Genitalia - jett in place
[2024-05-19] MEDS: ProAmatine 2.5 MG PO ×2 (09:04→12:59)
--- NOTE | 2024-05-19 10:29 | CM ---
indicated ready for discharge today.
Kapil Mobley requested updated OT evals Dept notified.Pt accepted at [facility] today after OT.
[facility] can accept today
IMM reviewed with pt Signed on chart.
Areli sister notified [phone] of dc to [facility] and in agreement.
[facility]
report [phone]
fax [phone]
PLAN To [facility] rehab
--- NOTE | 2024-05-19 12:13 | W.DS.TRANS ---
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
-
Discharge Instructions:
Discharge Diagnosis/Procedures Parkinson's disease
Acute on chronic ambulatory dysfunction in
patient with Parkinson's disease.
Reported hallucinations prior to admission.
Orthostasis
Acute kidney injury
Acute urinary retention
Leukocytosis with left shift
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
Hemophilia
Diet Regular
Instructions:
Stand-Alone Forms:
Changes to Home Medications: Yes
Discharge Medications:
DC Medications w/original date entered in [employer]
carbidopa 25 mg-levodopa 100 mg tablet 2 tab PO TID@0600,1000,1400 Neurological Condition 05/14/24
tamsulosin 0.4 mg capsule (Flomax) 0.4 mg PO HS Urinary Issue 05/14/24
acetaminophen 325 mg tablet (Tylenol) 650 mg PO Q6HPRN PRN mild pain 05/15/24
carbidopa 25 mg-levodopa 100 mg tablet 1 - 2 tab PO DAILY@2200 Neurological Condition 05/15/24
midodrine 2.5 mg tablet 2.5 mg PO TID@0800,1300,1800 #60 tabs 05/19/24
Home Medication Changes
Midodrine started
Pending Results: Yes
== END 2024-05-19 15:46 | DRG 56 ==
LOC: 4 EAST ACU 14:12
PROVIDERS: Physician Assistant Medical; ADMITTING PHYSICIAN Internal Medicine; ATTENDING PHYSICIAN Internal Medicine; CONSULT PHYSICIAN Physical Medicine & Rehabilitation; EMERGENCY PHYSICIAN Student in an Organized Health Care Education/Training Program; FAMILY PHYSICIAN Family Medicine
PROC: 5A09357 Assistance with Respiratory Ventilation, Less than 24 Consecutive Hours, Continuous Positive Airway Pressure (ICD-10-PCS; 2024-05-16)
DX: G20.A1 Parkinson's disease without dyskinesia, without mention of fluctuations (principal); D66 Hereditary factor VIII deficiency; N17.9 Acute kidney failure, unspecified; R44.3 Hallucinations, unspecified; R62.7 Adult failure to thrive; D72.829 Elevated white blood cell count, unspecified; E86.0 Dehydration; I95.1 Orthostatic hypotension; K59.00 Constipation, unspecified; N31.9 Neuromuscular dysfunction of bladder, unspecified; N40.1 Benign prostatic hyperplasia with lower urinary tract symptoms; R33.8 Other retention of urine; R26.2 Difficulty in walking, not elsewhere classified; Z79.899 Other long term (current) drug therapy
CPT/HCPCS: 80048; 81003; 81015; 85025; 87086; 97116; 97163; 97167; 97535; 99285

== ENCOUNTER 2024-05-25 19:38 | Emergency (ER) | payer MEDICARE, BC, SELFPAY ==
[2024-05-25 19:42] VITALS: BP 122/56; BMI 22.6
[2024-05-25 21:10] LABS: % Basophils 0.9 % (0-2); % Eosinophils 4.5 % (0-6); % Immature Granulocytes 0.9 % (0-0.5); % Lymphocytes 11.7 % (20.5-51.1); % Monocytes 12.7 % (1.7-9.3); % Neutrophils 69.3 % (42.2-75.2); Absolute Basophils 0.1 10^3/uL (0-0.2); Absolute Eosinophils 0.4 10^3/uL (0-0.7); Absolute Immature Granulocytes 0.1 10^3/uL (0-0.05); Absolute Lymphocytes 1.1 10^3/uL (1.2-3.4); Absolute Monocytes 1.2 10^3/uL (0.1-0.6); Absolute Neutrophils 6.5 10^3/uL (1.4-6.5); Hematocrit 37.3 % (39.0-52.0); Hemoglobin 12.9 g/dL (13.0-18.0); Mean Corp Hgb Conc. 34.6 g/dL (33.0-37.0); Mean Corpuscular Hgb 32.6 pg (27.0-31.0); Mean Corpuscular Volume 94.2 fL (80.0-94.0); Mean Platelet Volume 9.9 fL (7.4-10.4); Nucleated Red Blood Cells % 0 % (-); Platelet Count 304 10^3/uL (130-400); Red Blood Cell Count 3.96 10^6/uL (4.70-6.10); Red Cell Dist. Width 11.7 % (11.5-14.5); White Blood Cell Count 9.4 10^3/uL (4.8-10.8)
[2024-05-25 21:16] LABS: Urine Albumin Trace (Neg - Trace); Urine Bilirubin Negative (Negative); Urine Character Clear (Clear); Urine Color Yellow; Urine Glucose Negative (Negative); Urine Ketone Negative (Negative); Urine Leukocyte 2+ (Negative); Urine Nitrite Positive (Negative); Urine Occult Blood 3+ (Negative); Urine Urobilinogen Negative (Neg - 1+)
--- NOTE | 2024-05-25 21:17 | ED.GENMED ---
Addendum entered and electronically signed by Bharathi Plascencia PA-C 05/29/24 07:12:
On Augmentin, appropriate therapy per C&S
Original Note:
History of Present Illness
General
Chief Complaint: Male Genito-Urinary Symptoms
Source: patient and records
Time Seen by Provider: 05/25/24 20:41
History of Present Illness
History of Present Illness:
73-year-old male presenting to the emergency department from [facility] where he is currently staying following his discharge from this facility for evaluation of blood noticed from the tip of his penis earlier this evening. Patient had a
chronically indwelling Barakat catheter which was removed on 05 23 but is still needing straight catheter to urinate. Patient has history of hemophilia and was sent to the ER for further evaluation. Patient otherwise has no other concerns. No
reported fevers.
Past History
Past History
ED Past Medical History: Psychiatric and Other (Parkinson's)
ED Past Surgical History: Tonsilectomy
Social History
Tobacco: Non-smoker
Alcohol: None
Drug: None
Personal: Partner
Living: alone
Review of Systems
Review of Systems
All Other Systems: ROS reviewed and negative except as documented in HPI and ROS
Phy Exam
Physical Exam
Physical Exam:
GENERAL: Alert , in no apparent distress
EYE: conjunctiva clear
Head: Normocephalic atraumatic
NECK: Supple,
ENT: mmm.
LUNGS: no acute respiratory distress
GENITOURINARY: Small blood-tinged urine from the urethral meatus noted but no active bleeding
NEUROLOGICAL: Alert and oriented
SKIN: Warm and dry, skin intact.
MUSCULOSKELETAL: well perfused.
PSYCH: Normal and appropriate interaction.
Scores
Heart Failure Risk
Heart Failure Risk Score: Not Applicable
Heart Score for Chest Pain Patients
STEMI patient?: Not applicable
Withdrawal Assessment of Alcohol
Withdrawal Assessment Completed?: Not applicable
Course
Orders/Labs/Results
Orders:
Orders
05/25/24 20:48
Barakat Placement- Treatment ONCE
Reason for insertion: Acute Retention
05/25/24 20:55
Basic Metabolic Panel Urgent
Complete Blood Count/With Diff Urgent
05/25/24 21:08
Urinalysis Reflex To Culture Urgent
Date Specimen was Collected: 05/25/24
Time Specimen was Collected: 20:53
Urine Microscopic Reflex Cult Urgent
Urine Culture Urgent
CONNIE Source: U
Specimen Description:
Date Specimen was Collected: 05/25/24
Time Specimen was Collected: 20:53
Abnormal Lab Results
05/25/24 05/25/24
20:55 21:08
RBC 3.96 L 10^6/uL
(4.70-6.10)
Hgb 12.9 L g/dL
(13.0-18.0)
Hct 37.3 L %
(39.0-52.0)
MCV 94.2 H fL
(80.0-94.0)
MCH 32.6 H pg
(27.0-31.0)
Abs Immat Gran (auto) 0.1 H 10^3/uL
(0-0.05)
Absolute Lymphs (auto) 1.1 L 10^3/uL
(1.2-3.4)
Absolute Monos (auto) 1.2 H 10^3/uL
(0.1-0.6)
Immature Gran % 0.9 H %
(0-0.5)
Lymphocytes % 11.7 L %
(20.5-51.1)
Monocytes % 12.7 H %
(1.7-9.3)
BUN 38 H mg/dl
(9-20)
Glucose 147 H mg/dl
(70-99)
Ur Occult Blood Reflex 3+ A
(Negative)
Urine Nitrite (Reflex) Positive A
(Negative)
Leukocyte Esterase Rfl 2+ A
(Negative)
Urine RBC 26-30 A /HPF
(0-2)
Urine WBC (Reflex) >100 A /HPF
(0-5)
Urine Bacteria (Reflex) Many A
(Negative)
05/25/24 20:55
05/25/24 20:55
Vital Signs
Initial and Last Documented VS:
Initial Vital Signs
Temp Pulse Resp BP Pulse Ox
98.2 F 81 16 122/56 100
05/25/24 19:42 05/25/24 19:42 05/25/24 19:42 05/25/24 19:42 05/25/24 19:42
Last Documented Vital Signs
Temp Pulse Resp BP Pulse Ox
98.2 F 82 15 116/80 98
05/25/24 19:42 05/25/24 21:48 05/25/24 21:48 05/25/24 21:48 05/25/24 21:48
MDM/Problems Addressed
Differential Diagnosis Includes:
UTI, urethral trauma 2/2 frequent catheterization, anemia
MDM/Problems Addressed:
73-year-old male presenting to the ER from [facility] for evaluation of blood noted from the urethral meatus. Patient has been getting frequent catheterizations due to urinary retention. Patient does have blood-tinged urine at the urethral meatus
but is otherwise hemodynamically stable and in no acute distress. Will check labs and urinalysis with anticipation that patient will be [facility] to [facility]
*Pulse Oximetry
Patient hypoxic: no
*Critical Care Note
Total Time (30-74mins, 75-104mins- exclusive of procedures): Not Applicable
Data Reviewed
Review of Other/Old Records Reveals: Labs and Records
Patient Management
Escalation/DeEscalation of care consider admission/obs:
Patient's urinalysis shows nitrite positive urine, 2+ leukocyte esterase and greater than 100 WBCs. Will cover patient for urinary tract infection with Augmentin. Culture sent. Patient stable for discharge back to [place] rehab to continue treatment.
ED Attending Note
-
Portions of this chart may have been created with voice recognition software.� Occasional wrong word or��sound alike� substitutions may have occurred due to the inherent limitations of voice recognition software.
Discharge Plan
Departure
Patient Disposition: Acute Rehab Facility
Date of Disposition: 05/25/24
Time of Disposition: 21:40
Patient with high blood pressure during this ER visit?: No
Discharge Problem:
Urinary tract infection, Hematuria
Instructions: Urinary Tract Infection, Adult ED
Prescriptions:
New
amoxicillin-pot clavulanate 875-125 mg tablet
1 tab PO BID 10 Days Qty: 20 0RF
No Action
tamsulosin [Flomax] 0.4 mg Capsule
0.4 mg PO HS
carbidopa-levodopa 25-100 mg Tablet
2 tab PO TID@0600,1000,1400
acetaminophen [Tylenol] 325 mg Tablet
650 mg PO Q6HPRN PRN (Reason: mild pain)
carbidopa-levodopa 25-100 mg Tablet
1 tab PO HS
polyethylene glycol 3350 [Miralax] 17 gram Powder In Packet
17 g PO DAILY
bisacodyl [Dulcolax (bisacodyl)] 10 mg Suppository
10 mg IA DAILYPRN PRN (Reason: constipation)
bisacodyl [Dulcolax (bisacodyl)] 5 mg Tablet,Delayed Release (Dr/Ec)
10 mg PO DAILYPRN PRN (Reason: constipation)
docusate sodium 100 mg Tablet
100 mg PO DAILY
finasteride 5 mg Tablet
5 mg PO DAILY
midodrine 10 mg Tablet
10 mg PO TID@0700,1200,1600
Referrals:
Shoaib Juarez DO [Family Provider] -
Interventions
Interventions:
*Risk Screen - Suicide Last Done: 05/25/24 19:42
*General Assessment Last Done: 05/25/24 19:42
*Neglect/Abuse Screening Last Done: 05/25/24 19:42
ED- Fall Risk Assessment Last Done: 05/25/24 19:50
*ED COVID-19 Vaccine History Last Done: 05/25/24 19:50
ED-Male Genitourinary Assessment Last Done: 05/25/24 19:50
Discharge Date and Time
Print Language: MALTESE
[2024-05-25 21:30] LABS: Urine Bacteria Many (Negative); Urine Red Blood Cell 26-30 /HPF (0-2); Urine White Cell >100 /HPF (0-5)
[2024-05-25 21:35] LABS: Blood Urea Nitrogen 38 mg/dl (9-20); Carbon Dioxide 27 mmol/L (22-30); Chloride 103 mmol/L (98-107); Estimated Creatinine Clearance 71 ml/min; Glucose 147 mg/dl (70-99); Potassium 4.6 mmol/L (3.5-5.1); Sodium 140 mmol/L (135-145); eGFR > 60.00
[2024-05-25 21:48] VITALS: BP 116/80
== END 2024-05-25 21:55 ==
LOC: EMR 19:38
PROVIDERS: Physician Assistant Medical; EMERGENCY PHYSICIAN Emergency Medicine; FAMILY PHYSICIAN Family Medicine
DX: N39.0 Urinary tract infection, site not specified (principal); R31.9 Hematuria, unspecified; G20.A1 Parkinson's disease without dyskinesia, without mention of fluctuations
CPT/HCPCS: 99283; 80048; 81003; 81015; 85025; 87077; 87086; 87186

== ENCOUNTER 2024-07-03 16:41 | Emergency (ER) | payer MEDICARE, BC, SELFPAY ==
[2024-07-03 16:44] VITALS: BP 161/84
[2024-07-03 16:45] VITALS: BP 161/84
[2024-07-03 17:00] VITALS: BP 144/67
--- NOTE | 2024-07-03 17:25 | ED.GENMED ---
History of Present Illness
General
Chief Complaint: Catheter/Tube Problem
Time Seen by Provider: 07/03/24 16:56
History of Present Illness
History of Present Illness:
73-year-old male presents to the emergency department for evaluation of a Barakat catheter obstruction. His catheter was apparently obstructed this morning and after being exchanged at his nursing facility it became profoundly bloody. The catheter
was then removed and the patient was sent to the ED. 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
Past History
Past History
ED Past Medical History: Psychiatric and Other (Parkinson's)
ED Past Surgical History: Tonsilectomy
Social History
Tobacco: Non-smoker
Alcohol: None
Drug: None
Personal: Partner
Living: alone
Review of Systems
Review of Systems
Allergies reviewed?: Yes
All Other Systems: ROS reviewed and negative except as documented in HPI and ROS
Phy Exam
Physical Exam
Physical Exam:
GEN: Well appearing, NAD, WDWN
HEENT: Oral mucosa moist, no scleral icterus
Cardiac: Regular rate
Lung: No respiratory distress, no tachypnea
: Slight amount of blood at the urethral meatus
MSK: No gross deformity or injuries
Skin: Good color, no pallor or jaundice, no rashes
Neuro: AO x3, moves all extremities freely
Psych: Calm, cooperative
Course
Vital Signs
Initial and Last Documented VS:
Initial Vital Signs
Temp Pulse Resp BP Pulse Ox
98.1 F 71 16 161/84 98
07/03/24 16:44 07/03/24 16:44 07/03/24 16:44 07/03/24 16:44 07/03/24 16:44
Last Documented Vital Signs
Temp Pulse Resp BP Pulse Ox
98.1 F 71 16 154/78 99
07/03/24 16:44 07/03/24 16:44 07/03/24 16:44 07/03/24 19:00 07/03/24 19:15
MDM/Problems Addressed
MDM/Problems Addressed:
Barakat catheter was placed with no bloody output, and discharged in stable condition, will start prophylactic antibiotics
*Critical Care Note
Total Time (30-74mins, 75-104mins- exclusive of procedures): Not Applicable
ED Attending Note
-
Portions of this chart may have been created with voice recognition software.� Occasional wrong word or��sound alike� substitutions may have occurred due to the inherent limitations of voice recognition software.
Discharge Plan
Departure
Patient Disposition: Home (Routine Discharge)
Date of Disposition: 07/03/24
Time of Disposition: 18:11
Patient with high blood pressure during this ER visit?: No
Discharge Problem:
Obstruction of Barakat catheter
Instructions: How to Care for Your Barakat Catheter, Male
Prescriptions:
New
cefdinir 300 mg capsule
300 mg PO BID 5 Days Qty: 10 0RF
No Action
midodrine 10 mg Tablet
10 mg PO TID@0700,1200,1600
amoxicillin-pot clavulanate 875-125 mg Tablet
1 tab PO Q12 1 Days Qty: 2 0RF
midodrine 5 mg Tablet
10 mg PO TID@0700,1200,1600 30 Days Qty: 180 0RF
pantoprazole 40 mg Tablet,Delayed Release (Dr/Ec)
40 mg PO DAILY 30 Days Qty: 30 0RF
acetaminophen [Tylenol] 325 mg Tablet
650 mg PO Q6HPRN PRN (Reason: mild pain) 30 Days Qty: 100 0RF
polyethylene glycol 3350 [Miralax] 17 gram Powder In Packet
17 g PO DAILY 30 Days Qty: 30 0RF
bisacodyl [Dulcolax (bisacodyl)] 5 mg Tablet,Delayed Release (Dr/Ec)
10 mg PO DAILYPRN PRN (Reason: constipation) 30 Days Qty: 30 0RF
docusate sodium 100 mg Tablet
100 mg PO DAILY 30 Days Qty: 30 0RF
carbidopa-levodopa 25-100 mg Tablet
1 tab PO HS 30 Days Qty: 30 0RF
carbidopa-levodopa 25-100 mg Tablet
2 tab PO TID@0600,1000,1400 30 Days Qty: 180 0RF
Referrals:
Shoaib Juarez DO [Family Provider] -
Interventions
Interventions:
*Risk Screen - Suicide Last Done: 07/03/24 16:44
*General Assessment Last Done: 07/03/24 16:44
*Neglect/Abuse Screening Last Done: 07/03/24 16:44
*ED COVID-19 Vaccine History Last Done: 07/03/24 16:44
*Nursing Disposition Last Done: 07/03/24 20:28
BA-Vbodvv-[id number] Assessment Last Done: 07/03/24 16:50
ED-Male Genitourinary Assessment Last Done: 07/03/24 16:50
Discharge Date and Time
Discharge Date/Time: 07/03/24 20:29
Print Language: LEBANESE
[2024-07-03 18:00] VITALS: BP 152/75
[2024-07-03 19:00] VITALS: BP 154/78
== END 2024-07-03 20:29 | disposition home or self-care (01) ==
LOC: EMR 16:41
PROVIDERS: EMERGENCY PHYSICIAN Emergency Medicine; FAMILY PHYSICIAN Family Medicine
DX: T83.091A Other mechanical complication of indwelling urethral catheter, initial encounter (principal); Y84.6 Urinary catheterization as the cause of abnormal reaction of the patient, or of later complication, without mention of misadventure at the time of the procedure; Y73.1 Therapeutic (nonsurgical) and rehabilitative gastroenterology and urology devices associated with adverse incidents; D66 Hereditary factor VIII deficiency
CPT/HCPCS: 99283; 51798